=== PATIENT | female | born 1995 | race Two or more races ===

== ENCOUNTER 2024-08-14 14:10 | Observation (INO) | payer MEDICAID, SELFPAY ==
[2024-08-14 14:32] VITALS: BP 143/82; PULSE 94
[2024-08-14 15:52] VITALS: BP 143/82; PULSE 94; RESP 17; RESP 99; TEMP 37.1
[2024-08-14 15:53] VITALS: BMI 39.1
[2024-08-14 16:23] VITALS: BP 123/68; PULSE 80
== END 2024-08-14 16:52 | disposition home or self-care (01) ==
PROVIDERS: Admitting Provider Obstetrics & Gynecology; Visit Provider Obstetrics & Gynecology
DX: Z34.83 Encounter for supervision of other normal pregnancy, third trimester (principal); Z3A.37 37 weeks gestation of pregnancy
CPT/HCPCS: 59025; 59899

== ENCOUNTER 2024-08-21 06:45 | Inpatient (IN) | payer MEDICAID, SELFPAY ==
[2024-08-21] VITALS (50 sets, daily range): BP systolic 0–172; BP diastolic 0–103; PULSE 79–175; RESP 17–99; TEMP 36.6–37.1; O2SAT 79–100
--- NOTE | 2024-08-21 07:40 | PD.LDHP ---
Documentation for date of: 08/21/24 OB Labor/Induct. HPI History of Present Illness Chief complaint: FLUID LEAKAGE : 3 Para: 2 Term pregnancies: 2 pregnancies: 0 Living children: 2 History of Abortions: Spontaneous and Elective: 0 History of Vaginal deliveries: 2 History of sections: No History of : No TANIA: 09/02/24 Gestational Age (weeks): 38 History of Present Adequate Care: No (26 WEEKS START) Review of Systems Review of Systems Systems Reviewed: All systems reviewed, normal except as documented Constitutional Constitutional: Reports system reviewed and no additional complaints, except as documented Past Medical History Past Medical History NEUROLOGIC: Negative Neurological Disorders, Brain Tumor, Epilepsy, Amyotrophic Lateral Sclerosis (ALS/Priscilla Gehrig's) or Paralysis Surgical History SURGICAL: Negative Cardiac Surgery, Open Heart Surgery, Bowel Surgery, of Back Surgery or Section Social History SOCIAL: NO HX OF DRUG ABUSE SUBSTANCE USE: does not use ALCOHOL: Never Travel History EBOLA RISK: No Meds Home Medications and Allergies Home Medications ?Medication ?Instructions ?Recorded ?Confirmed ?Type vitamins-iron fumarate 27 200 tab PO DAILY 01/01/19 01/01/19 History mg iron-folic acid 0.8 mg tablet ( Vitamin) Allergies Allergy/AdvReac Type Severity Reaction Status Date / Time No Known Allergies Allergy Verified 11/05/21 18:50 OB Exam Physical Exam Vital signs: Pulse BP Pulse Ox 96 139/87 H 98 08/21/24 07:12 08/21/24 07:12 08/21/24 07:27 Routine HEENT Exam Head: Present normocephalic; Absent facial swelling Eye: Present EOMI and normal accommodation ENT: Present mucous membranes moist Routine Neck Exam Neck: Present supple Routine Chest/Breast/Axilla Exam Chest wall: Absent tenderness, pacemaker or chest tube Routine Respiratory Exam Respiratory: Absent patient mechanically ventilated Comments: UNLABORED RESPIRATION Routine Cardiovascular Exam Cardiovascular: Present RRR; Absent tachycardia Comments: NSR Routine Abdominal Exam Abdominal: Present normoactive bowel sounds; Absent surgical scars Routine Exam External: Present normal urethra appearance; Absent swelling or lesions Groin: Absent inguinal hernia, femoral hernia or inguinal lymphadenopathy Detailed Labor and Delivery Exam Dilation (cm): 3 Effacement (%): 90 Cervix position: anterior station: -1 Consistency: soft Presentation: Vertex Cervical ripeness score: 8 Membranes: ruptured Amniotic fluid: clear Baseline heart rate: 150 monitor accelerations: 15x15 monitor decelerations: Variable (ONE EPISODE) MCFP variability: Average (6-10) Contraction frequency (min): 3 Contraction duration (sec): 50 Tachysystole: No Contraction intensity: Moderate Routine Extremities Exam Extremities: Present full ROM; Absent cyanosis, calf tenderness, Bert's sign, amputation or AV fistula Routine Back/Spine/Pelvis Exam Back/Spine: Present full ROM; Absent CVA tenderness Pelvis: Absent buttock ecchymosis or pain with lateral compression of the pelvis Routine Skin Exam Skin: Present intact; Absent cyanosis, petechiae or urticaria Routine Neurological Exam Neurological: Present alert, oriented X3 and CN II-XII intact; Absent sensory deficit or nystagmus OB Results Impressions Impression: TERM WITH SROM IN LABOR OB Assessment & Plan Assessment and Plan (1) Normal in third trimester: Status: Acute (2) Active labor at term: Status: Acute
[2024-08-21 08:58] LABS: Basophils % (Auto) 0 % (0-2.5); Eosinophils # (Auto) 0.1 Thou/mm3 (0.0-0.5); Eosinophils % (Auto) 0 % (0-10); Hematocrit 32.9 % (36.0-46.0); Hemoglobin 11.6 g/dL (12.0-16.0); Immature Granulocytes % (Auto) 1 % (0-0); Immature Granulocytes Auto 0.08 Thou/mm3 (0.00-0.00); Lymphocytes # (Auto) 2.6 Thou/mm3 (1.0-4.8); Lymphocytes % (Auto) 20 % (10-50); Mean Corpuscular HGB Conc 35.3 g/dl (31.0-37.0); Mean Corpuscular Volume 91 fL (80-100); Monocytes % (Auto) 8 % (0-12); Neutrophils # (Auto) 9.2 Thou/mm3 (1.8-7.7); Neutrophils % (Auto) 71 % (37-80); Nucleated Red Blood Cell % 0 /100 WBC (0); Platelet Count 295 Thou/mm3 (140-440); RDW Standard Deviation 45.9 fL (36.4-46.3); Red Blood Count 3.63 Miln/mm3 (4.00-5.20); White Blood Count 12.9 Thou/mm3 (3.6-11.0)
[2024-08-21 09:36] LABS: Syphilis Nonreactive (Nonreactive)
[2024-08-21 09:39] LABS: Amphetamine/Metham Scrn,Ur OB Negative (Negative); Benzoylecgonine Screen, Ur OB Negative (Negative); Opiate Screen,Urine OB Negative (Negative); THC Screen,Urine OB Negative (Negative)
--- NOTE | 2024-08-21 10:15 | PD.LDPN ---
Documentation for date of: 08/21/24 OB Labor Progress Note Pain Control Pain control: tolerating well Pelvic Exam Dilation (cm): 7 Effacement (%): 90 station: 0 Amniotic membrane status: Ruptured Contractions Monitor mode: External Contraction frequency: 2-4 Contraction duration: 40-60 Contraction phase: Contraction Contraction intensity: Strong Assessment and Plan Assessment: active labor Plan OB labor note: continuous present management Comments: Pt is progressing well on her own Anticipate
[2024-08-21] MEDS: OXYTOCIN in NS 30 units 30 UNIT/500 ML BAG IV (11:42)
[2024-08-21] MEDS: RINGERS LACTATED 1000 ML 1,000 ML 100 ML IV (11:43)
[2024-08-21] MEDS: MINERAL OIL 30 ML UDC TOP (12:44)
[2024-08-21] MEDS: TRANEXAMIC ACID 1,000 MG IVPB 1,000 MG/100 ML BAG 200 MG IV (13:30)
--- NOTE | 2024-08-21 14:26 | PD.LDDELS ---
Data ([place]) Data Hx Section: No Maternal Blood Type: B Pos Rubella Titre: Positive RPR: Non-reactive Labs: Negative: RPR, Hepatitis B, HIV, Chlamydia, Gonorrhea and Group Beta Strep and Unknown: Herpes Type 1 and Herpes Type 2 : 3 Para: 2 Term: 2 : 0 Livin : 0 Delivery Data ([place]) Labor Data Stimulated/Augmented: No Induction: No ROM Date: 08/21/24 ROM Time: 06:40 Rupture Type: SROM Amniotic Fluid: Clear Delivery Data EDC: 09/02/24 EDC calculated by:: LMP/early US confirmation Labor Onset Stage 1 Date: 08/21/24 Labor Onset Stage 1 Time: 06:40 Labor Onset Stage 2 Date: 08/21/24 Labor Onset Stage 2 Time: 12:37 Delivery Date: 08/21/24 Delivery Time: 12:46 Gestational age (weeks): 38 Gestational age (days): 2 Placenta Delivery Date: 08/21/24 Placenta Delivery Time: 12:55 Delivered by: Elisa Bradley Delivery nurse: Marysol Hammond Support person(s) at delivery: FOB Other staff at delivery: Nursery Nurse Other staff at delivery: Jasmin Marinelli Delivery Method Delivery: Vaginal Delivery Type: Spontaneous Presentation: Vertex Position: OA Anesthesia Type Primary Anesthesia: None Secondary Anesthesia: None Delivery Room Medications Other Intrapartum Medications: No Post Delivery Medications N/A: No Placenta Placenta Delivery: Manual Placenta Cultures Obtained: No Placenta Sent for Examination: No Cord Sample: Cord Blood Obtained Episiotomy Episiotomy: None EBL Estimated blood loss (ml): 200 Umbilical Cord Umbilical Vessels: 3 Nuchal Cord: None Body Cord: None Additional Procedures Patient had an of a viable male infant delivered. The anterior shoulder delivered with gentle downward traction subsequent deliver the posterior shoulder and the body without complications. placed on mother's abdomen. Vigorous cry upon delivery. Cord was clamped and then cut by FOB. Cord blood obtained. Three-vessel cord noted. Placenta expelled spontaneously and intact. No lacerations noted. Perineum intact. Excellent hemostasis achieved after vigorous fundal massage and removal of clots from the posterior fornix. EBL 200. Mother and baby stable, skin to skin and bonding in LDR. Anderson Data ([place]) Anderson Data Gender: Male Weight Grams: 3340 1 Minute Total: 9 5 Minute Total: 9
[2024-08-21] MEDS: IBUPROFEN TAB 400 MG TABLET 800 MG PO (14:45)
[2024-08-21 19:21] LABS: Basophils % (Auto) 0 % (0-2.5); Eosinophils % (Auto) 0 % (0-10); Hematocrit 27.1 % (36.0-46.0); Hemoglobin 9.4 g/dL (12.0-16.0); Immature Granulocytes % (Auto) 1 % (0-0); Immature Granulocytes Auto 0.09 Thou/mm3 (0.00-0.00); Lymphocytes # (Auto) 1.6 Thou/mm3 (1.0-4.8); Lymphocytes % (Auto) 10 % (10-50); Mean Corpuscular HGB Conc 34.7 g/dl (31.0-37.0); Mean Corpuscular Hemoglobin 31.8 pg (25.0-35.0); Mean Corpuscular Volume 92 fL (80-100); Monocytes # (Auto) 1.2 Thou/mm3 (0.0-0.8); Monocytes % (Auto) 8 % (0-12); Neutrophils # (Auto) 12.6 Thou/mm3 (1.8-7.7); Neutrophils % (Auto) 82 % (37-80); Nucleated Red Blood Cell % 0 /100 WBC (0); Platelet Count 330 Thou/mm3 (140-440); RDW Standard Deviation 46.5 fL (36.4-46.3); Red Blood Count 2.96 Miln/mm3 (4.00-5.20); White Blood Count 15.5 Thou/mm3 (3.6-11.0)
[2024-08-22 00:08] VITALS: BP 124/79; PULSE 91; RESP 17; TEMP 36.6; O2SAT 99
[2024-08-22] MEDS: IBUPROFEN TAB 400 MG TABLET 800 MG PO (01:09)
[2024-08-22 04:09] VITALS: BP 132/80; PULSE 87; RESP 16; TEMP 36.8; O2SAT 98
--- NOTE | 2024-08-22 07:13 | PD.LDDS ---
DS: Providers Provider Date of admission: 08/21/24 07:40 Primary care physician: Physician No Primary/Family Admitting Provider: Kermit Davis MD Attending Provider on Admission: Kermit Davis MD Consults: 08/21/24 14:00 Referral Routine Comment: Attending Provider on DC: Elisa Bradley CNM Discharging Provider: Elisa Bradley CNM Anticipated date of discharge: 08/22/24 DS: Diagnosis Discharge Diagnosis (1) Normal spontaneous vaginal delivery: Status: Acute (2) Encounter for care of lactating mother: Status: Acute (3) Active labor at term: Status: Acute Problem List Completed Was Problem List Reviewed/Reconciled?: Yes Summary/Hosp Course Brief History: 28 y/o 38w 2d presents to L&D in early labor with SROM at 3 cm vertex, GBS is neg. 08/21/24:Patient had an of a viable male delivered. The anterior shoulder delivered with gentle downward traction subsequent deliver the posterior shoulder and the body without complications. Infant placed on mother's abdomen. Vigorous cry upon delivery. Cord was clamped and then cut by FOB. Cord blood obtained. Three-vessel cord noted. Placenta expelled spontaneously and intact. No lacerations noted. Perineum intact. Excellent hemostasis achieved after vigorous fundal massage and removal of clots from the posterior fornix. EBL 200. Mother and baby stable, skin to skin and bonding in LDR. 08/22/24: PPD#1. patient is stable and afebrile and doing well and . Denies dizziness shortness of breath. Uterus is nontender fundus firm minimal lochia. Patient has bottlefeeding. Discharge instructions given. Patient to follow-up with her OB in 3 weeks or with Elisa Bradley CNM at [facility]. Peripartum Data Delivery Method: Normal Vaginal Delivery Episiotomy Description: None Laceration Description: no complications: none 1: Gender: Male Disposition of : home Status at Discharge Cognitive/behavioral status at discharge: Alert and oriented x3 Functional status at discharge: independent ambulation Overall status at discharge: patient is progressing back to baseline Time Spent with Patient Time attestation: Total time spent providing and/or coordinating discharge services: Time spent: Greater than 30 minutes Exam Vital Signs Temp Pulse Resp BP Pulse Ox 97.9 F 106 H 18 139/65 H 85 L 08/21/24 15:09 08/21/24 15:09 08/21/24 15:09 08/21/24 15:09 08/21/24 13:01 Constitutional Constitutional: no acute distress Routine HEENT Exam Head: Present normocephalic and atraumatic Eye: Present EOMI, PERRL and normal accommodation ENT: Present mucous membranes moist Routine Neck Exam Neck: Present supple, full ROM and trachea midline Routine Respiratory Exam Respiratory: Present chest non-tender, lungs clear, normal breath sounds and no resp distress Routine Cardiovascular Exam Cardiovascular: Present RRR Routine Abdominal Exam Abdominal: Present soft and normoactive bowel sounds Comments: Uterus non-tender Fundus firm Routine Exam Patient deferred: external exam Routine Extremities Exam Extremities: Present full ROM, pulses intact and normal capillary refill; Absent calf tenderness or tenderness Routine Back/Spine/Pelvis Exam Back/Spine: Present full ROM Routine Skin Exam Skin: Present intact, dry and warm Routine Neurological Exam Neurological: Present alert, oriented X3 and CN II-XII intact Routine Psychiatric Exam Psychiatric: Present normal affect and normal thought process Discharge Plan Plan Patient Disposition: HOME (Self Care) Patient condition on transfer: Stable Prescriptions/Referrals Prescriptions/Med Rec: New docusate sodium [Colace] 100 mg capsule 100 mg PO BID Qty: 60 0RF ibuprofen 600 mg tablet 600 mg PO Q6H PRN (Reason: pain) Qty: 90 0RF lanolin 50 % ointment 1 applic topical TID PRN (Reason: skin irritation) Qty: 15 0RF Continued Vitamin 27 mg iron- 0.8 mg Tablet 200 tab PO DAILY Discontinued ibuprofen 600 mg tablet 600 mg PO Q8H PRN (Reason: pain) Qty: 30 0RF Referrals: No Primary/Family,Physician [Primary Care Provider] - Patient/Caregiver Discharge Instructions Meds to Beds: No Discharge Activity: activity as tolerated Other Discharge Activity Instructions:: Follow-up with OBGYN provider or Elisa Bradley CNM in 3 weeks Education Materials: After a Vaginal , : Caring for Yourself Print Language: Uzbek Stand Alone Forms: [facility] Award Info., Patient Portal Info Letter Discharge Order Discharge Orders: Discharge (Routine); Ordered 08/22/24 Ordered By: Elisa Bradley Planned Discharge Date 08/22/24
[2024-08-22 08:00] VITALS: BP 132/87; PULSE 95; RESP 18; TEMP 36.6; O2SAT 98
[2024-08-22] MEDS: DOCUSATE SOD 100 MG CAPSULE PO (08:35)
--- NOTE | 2024-08-22 09:50 | PC.SS ---
SS conducted bedside contact with the patient to address nursing referral indicating that patient was late to care.? SS introduced self and role.? SS asked for permission to speak in front of family members.? Patient agreed.? Patient states she was late to care because she did not know she was . She did not feel any symptoms.? Patient received care under the care of Dr Vazquez at [facility]. NB is patient?s third child. ?NB was born on [birth year] via natural .? Age of other child in home is 2 and 5 years old. Patient has decided upon a firewall security engineer at [facility]. ?FOB is Naseem Ray . FOB resides in the home. Patient states she plans on breast feeding. Patient denies history of drugs or alcohol.? Patient denies any history of mental illness, CWS or DV. ?Patient is aligned with WIC, FS and TANF. guest services coordinator provided resources to include:? [employer], Warm Line and community numbers. Patient has access to appropriate supplies and equipment.? Patient has access to a car seat.? Patient describes possessing support system consisting of spouse, family and friends. FOB to provide transportation home. No further intervention required at this time. Attending Psychiatrist will be available to address any further concerns. SS updated bedside nurse. Patient to be discharged home today.
[2024-08-22 12:00] VITALS: BP 127/81; PULSE 100; RESP 18; TEMP 36.7; O2SAT 98
[2024-08-22] MEDS: DIPHTH,PERTUSS(ACELL),TET VAC 0.5 ML SYR- ADULT IMi (14:39)
== END 2024-08-22 15:05 | disposition home or self-care (01) | DRG 560 ==
LOC: S4SX 15:26 → S4NX 15:37
PROVIDERS: Nurse Practitioner Women's Health; Admitting Provider Obstetrics & Gynecology; Visit Provider Obstetrics & Gynecology
DX: O80 Encounter for full-term uncomplicated delivery (principal); Z37.0 Single live birth; Z3A.38 38 weeks gestation of pregnancy; Z23 Encounter for immunization
CPT/HCPCS: 36415; 59025; 80307; 85025; 86780; 86850; 86900; 86901; 90715; J2590; J3490; J7120; A9270